=== PATIENT | male | born 2000 | race American Indian/Alaskan Native ===

== ENCOUNTER 2021-06-11 17:26 | Emergency (ER) | payer SELFPAY ==
[2021-06-11] MEDS ORDERED: TETRACAINE 0.5% OPHTH SOLN 4ML OU PRN (18:00)
[2021-06-11] MEDS ORDERED: FLUORESCEIN 1 MG STRIP OP ONE (18:01)
--- NOTE | 2021-06-11 18:05 | Emergency Department Report ---
Eye Injury/Foreign Body - HPI Eye Location: Right Severity: Moderate Tetanus Status: Unknown Eye Symptoms: Eye Pain: Yes, Blurred Vision: Yes, Eye Redness: Yes, Grinding/Hammering Metal: No, Used Eye Protection: No, Contact Lens Use: Yes, Recalls Injury: No, Photophobia: No Other History: The patient states that he woke up this morning feeling like something was in his right eye. He realized that he forgot to take his contact lens out last night. He complains of continued irritation and foreign body sensation. He denies any drainage or discharge. It was red earlier but that seems to have resolved. He has some mild blurred vision but denies any headache, nausea, or dizziness. ED Review of Systems ROS: Stated complaint: EYE PAIN Other details as noted in HPI Comment: All other systems reviewed and negative Eyes: as per HPI, eye pain, vision change ED Past Medical Hx - Medications Home Medications: Home Medications Medication Instructions Recorded Confirmed Last Taken Type Erythromycin [Erythromycin Ophth 10 applic OP Q6HR #3.5 tube 06/11/21 Unknown Rx Oint] Eye Injury Exam - Exam General: Vital signs noted. No distress. Alert and acting appropriately. ED Course Vital Signs 06/11/21 17:50 Temperature 98.1 F Pulse Rate 62 Respiratory 16 Rate Blood Pressure 114/61 [Right] O2 Sat by Pulse 97 Oximetry Critical care attestation.: If time is entered above; I have spent that time in minutes in the direct care of this critically ill patient, excluding procedure time. ED Disposition Clinical Impression: Corneal abrasion of right eye due to contact lens Disposition: 01 HOME / SELF CARE / HOMELESS Is pt being admited?: No Condition: Stable Instructions: Corneal Abrasion Prescriptions: Erythromycin [Erythromycin Ophth Oint] 10 applic OP Q6HR #3.5 tube Forms: Work/School Release Form(ED)
[2021-06-11 20:42] VITALS: BP 133/54
== END 2021-06-11 20:37 | disposition home or self-care (01) ==
LOC: EDBD → ED 17:26
DX: H18.821 Corneal disorder due to contact lens, right eye (principal)
CPT/HCPCS: 99282